=== PATIENT | male | born 1985 | race Caucasian/White ===

== ENCOUNTER 2016-09-06 11:42 | Emergency (ER) | payer OTHER ==
[2016-09-06 12:07] VITALS: RESP 18; TEMP 98.8
[2016-09-06] MEDS ORDERED: ONDANSETRON HCL 4 MG/2 ML 4 MG in SODIUM CHLORIDE 0.9% 100 ML 100 ML IV ONE (12:33)
[2016-09-06] MEDS ORDERED: MORPHINE SULFATE 10 MG/ML SOL IV ONE ×2 (12:33→13:34)
[2016-09-06] MEDS ORDERED: MORPHINE SULFATE 10 MG/ML SOL ONE ×2 (12:46→13:38)
[2016-09-06] MEDS ORDERED: ONDANSETRON HCL 4 MG/2 ML SOL IV ONE (12:49)
[2016-09-06] MEDS ORDERED: ONDANSETRON HCL 4 MG/2 ML SOL ONE (12:50)
[2016-09-06] MEDS: SODIUM CHLORIDE 0.9% 1000ML 1,000 ML IV SCH ×3 (13:15→14:47)
[2016-09-06] MEDS ORDERED: PANTOPRAZOLE SODIUM 40 MG/10 ML PDS IV ONE (13:34)
[2016-09-06] MEDS ORDERED: PANTOPRAZOLE SODIUM 40 MG/10 ML PDS ONE (13:38)
[2016-09-06 13:48] LABS: APPEARANCE,URINE Clear; BILIRUBIN,URINE NEGATIVE (NEGATIVE); COLOR,URINE Yellow; GLUCOSE, URINE (UA) NEGATIVE (NEGATIVE); KETONES,URINE NEGATIVE (NEGATIVE); LEUKOCYTE ESTERASE ,URINE NEGATIVE (NEGATIVE); NITRATE,URINE NEGATIVE (NEGATIVE); OCCULT BLOOD,URINE NEGATIVE (NEG-TRACE); PH,URINE 5.5; UROBILINOGEN,URINE 0.2 (0.2-1.0 EU)
[2016-09-06 14:02] LABS: RBC,URINE 0-1 (0-3AV/HPF); WBC,URINE 0-1 (0-5AV/HPF)
[2016-09-06 16:11] VITALS: BP 158/93; PULSE 80; O2SAT 99
== END 2016-09-06 15:58 | disposition short-term general hospital (02) ==
LOC: ED 11:42
DX: K80.00 Calculus of gallbladder with acute cholecystitis without obstruction (principal)
CPT/HCPCS: 36415; 74177; 81001; 84484; 99285; J2270; J2405; Q9967